=== PATIENT | male | born 1945 | race Caucasian/White ===

== ENCOUNTER 2024-02-17 13:57 | Emergency (ER) | payer MEDICARE ==
[~2024-02-17] VITALS: Ht 167.6 cm; Wt 81.6 kg
[2024-02-17] MEDS ORDERED: NEOMY/BACITRA/POLYMYXIN B OINT UD PACKET TP ONE (14:22)
[2024-02-17] MEDS: NEOMY/BACITRA/POLYMYXIN B OINT UD PACKET TP ONE (14:23)
[2024-02-17 16:13] VITALS: BP 118/80; TEMP 98; O2SAT 99
== END 2024-02-17 16:13 | disposition home or self-care (01) ==
LOC: ER 13:57
DX: S06.0X0A Concussion without loss of consciousness, initial encounter (principal); S02.2XXA Fracture of nasal bones, initial encounter for closed fracture; Z88.0 Allergy status to penicillin; W01.0XXA Fall on same level from slipping, tripping and stumbling without subsequent striking against object, initial encounter; Y93.89 Activity, other specified; Y92.89 Other specified places as the place of occurrence of the external cause; Y99.8 Other external cause status
CPT/HCPCS: 70450; 70486; 72125; A4606; A4663